=== PATIENT | female | born 1990 | race Caucasian/White ===

== ENCOUNTER 2021-12-24 23:11 | Emergency (ER) | payer MEDICAID ==
[~2021-12-24] VITALS: Ht 167.6 cm; Wt 75.9 kg
[2021-12-25] VITALS: BP 108/78
--- NOTE | 2021-12-25 00:32 | NUR ---
PT TAKEN TO [facility]
[2021-12-25] MEDS ORDERED: BACITRACIN OINT 500 UNITS/GM PKT TP ONE (00:40)
[2021-12-25] MEDS ORDERED: AMOX1TAB8 PO (00:44)
[2021-12-25] MEDS ORDERED: ACET-10509 PO (00:44)
--- NOTE | 2021-12-25 00:59 | NUR ---
ANIMAL REPORT COMPLETED AND FAXED TO [facility] PER PT REQUEST.
[2021-12-25 01:11] VITALS: BP 108/78
--- NOTE | 2021-12-25 01:11 | NUR ---
Patient discharged with v/s stable. Written and verbal after care instructions given and explained. Patient alert, oriented and verbalized understanding of instructions. Ambulatory with steady gait. All questions addressed prior to discharge. ID band removed. Patient advised to follow up with PMD. Rx of TYLENOL AND AMOX-CLAV given. Patient educated on indication of medication including possible reaction and side effects. Opportunity to ask questions provided and answered.
== END 2021-12-25 01:11 | disposition home or self-care (01) ==
LOC: MED 23:11
DX: S81.851A Open bite, right lower leg, initial encounter (principal); Z79.899 Other long term (current) drug therapy; Z79.2 Long term (current) use of antibiotics; W54.0XXA Bitten by dog, initial encounter; Y93.89 Activity, other specified; Y92.89 Other specified places as the place of occurrence of the external cause; Y99.8 Other external cause status
CPT/HCPCS: 90471; 90715; 99283

== ENCOUNTER 2022-03-08 02:09 | Emergency (ER) | payer MEDICAID ==
[~2022-03-08] VITALS: Ht 167.6 cm; Wt 75.3 kg
[~2022-03-08 02:09] MED LIST: ACET-10509 PO; AMOX1TAB8 PO
[2022-03-08 02:11] VITALS: BP 117/72
--- NOTE | 2022-03-08 02:36 | NUR ---
Patient ambulated to bed 4 with her family.
--- NOTE | 2022-03-08 03:23 | NUR ---
31 Y.O. F BIB SELF C/O abdominal pain x 1 day. Patient reported, had lower abdmoninal pain, and difficulty to urinate since 1400 PM yesterday. PAIN IS 8/10 IN LOWER ABDOMEN/ PELVIC AREA. FEELS LIKE SHE HAS BLOATING OF HER STOMACH. SHE ALSO HAS NOT BEEN SLEEPING DUE TO THE PAIN. BURNING WHEN URINATING. VITALS WNL, SKIN INTACT, A&0X4, NO SOB, NOR CHEST PAINS. NO N/V/D. GAIT IS STEADY. [facility]
[2022-03-08] MEDS ORDERED: NACL 0.9% 1,000 ML IV SCH (03:30)
[2022-03-08] MEDS ORDERED: KETOROLAC 30 MG/ML VIAL IVP ONE (03:30)
--- NOTE | 2022-03-08 03:31 | NUR ---
LAB AT BEDSIDE DRAWING LABS
--- NOTE | 2022-03-08 03:32 | NUR ---
PT TAKEN TO CT
[2022-03-08 03:37] LABS: BASOPHILS % (AUTO) 0.3 % (0.0-2.0); EOSINOPHILS # (AUTO) 0.1 K/uL (0-0.4); EOSINOPHILS % (AUTO) 0.6 % (0.0-4.0); HEMATOCRIT 39.8 % (36-48); HEMOGLOBIN 13.5 g/dL (12.0-16.0); LYMPHOCYTES # (AUTO) 2.3 K/uL (2.5-16.5); LYMPHOCYTES % (AUTO) 17.3 % (20.5-51.1); MEAN CORPUSCULAR HEMOGLOBIN 29 pg (27-31); MEAN CORPUSCULAR HGB CONC 34 g/dL (33-37); MEAN CORPUSCULAR VOLUME 84.9 fL (80-94); MONOCYTES # (AUTO) 0.8 K/uL (0.8-1.0); NEUTROPHILS # (AUTO) 9.9 K/uL (1.8-7.7); NEUTROPHILS % (AUTO) 75.8 % (42.2-75.2); PLATELET COUNT (AUTO) 184 K/uL (140-450); RED BLOOD CELL COUNT(AUTO) 4.69 MIL/uL (4.20-5.40); RED CELL DISTRIBUTION WIDTH 13.7 % (11.6-13.7)
[2022-03-08 03:37] LABS: APPEARANCE,URINE CLEAR (CLEAR); BILIRUBIN,URINE NEGATIVE (NEGATIVE); BLOOD, URINE NEGATIVE (NEGATIVE); COLOR,URINE YELLOW (YELLOW); LEUKOCYTE ESTERASE ,URINE NEGATIVE (NEGATIVE); NITRITE, URINE NEGATIVE (NEGATIVE); PH,URINE 5.5 (5.0-9.0); UGLUCOSE NEGATIVE (NEGATIVE)
[2022-03-08 03:52] LABS: ALBUMIN 3.7 g/dL (3.4-5.0); ANION GAP 9.6 (8-16); CARBON DIOXIDE 27.7 mmol/L (21-32); CREATININE 0.6 mg/dL (0.6-1.3); POTASSIUM 4.3 mmol/L (3.5-5.1); TOTAL BILIRUBIN 0.2 mg/dL (0.0-1.0)
[2022-03-08] MEDS ORDERED: IBUP-2213 PO (04:32)
[2022-03-08] MEDS ORDERED: ACET-8386 PO (04:32)
[2022-03-08] MEDS ORDERED: ONDA8TAB87 PO (04:33)
--- NOTE | 2022-03-08 04:43 | NUR ---
Patient discharged with v/s stable. Written and verbal after care instructions given and explained. Patient alert, oriented and verbalized understanding of instructions. Ambulatory with steady gait. All questions addressed prior to discharge. ID band removed. Patient advised to follow up with PMD. Rx of ZOFRAN, IBUPROFEN, AND HYDROCODON-ACETAMINOPHEN given. Patient educated on indication of medication including possible reaction and side effects. Opportunity to ask questions provided and answered.
== END 2022-03-08 04:43 | disposition home or self-care (01) ==
LOC: MED 02:09
DX: R10.30 Lower abdominal pain, unspecified (principal); R30.0 Dysuria; Z98.890 Other specified postprocedural states; Z79.899 Other long term (current) drug therapy
CPT/HCPCS: 36415; 74176; 80053; 81003; 81025; 83690; 85025; 96361; 96374; 99284; J1885; J7030